=== PATIENT | male | born 1945 | race Caucasian/White ===

== ENCOUNTER 2018-03-10 09:15 | Outpatient (CLI) | payer MEDICARE, BC | END 2018-03-10 09:16 | disposition home or self-care (01) | LOC: EDSEX → BICMAMMO 09:15 | PROVIDERS: ATTEND Family Medicine | DX: Z12.31 Encounter for screening mammogram for malignant neoplasm of breast (principal); R92.1 Mammographic calcification found on diagnostic imaging of breast; Z80.3 Family history of malignant neoplasm of breast | CPT/HCPCS: 77063; 77067 ==

== ENCOUNTER 2019-03-16 13:51 | Outpatient (CLI) | payer MEDICARE, BC ==
--- NOTE | 2019-03-16 15:27 | MMO ---
Bilateral MAMMO Bilat Screen [facility]. CLINICAL HISTORY: Patient is 74 years old and is seen for screening. The patient has no personal history of cancer. The patient has a history of left Excisional Biopsy at age 56 - benign. VIEWS: The views performed were: bilateral craniocaudal with tomosynthesis; bilateral mediolateral oblique with tomosynthesis; and left mediolateral. FILMS COMPARED: The present examination has been compared to prior imaging studies performed at [facility] on 02/28/2016, 03/04/2017, 03/09/2017 and 03/10/2018. This study has been interpreted with the assistance of computer-aided detection. MAMMOGRAM FINDINGS: There are scattered fibroglandular densities. There are no suspicious masses, calcifications or areas of architectural distortion. Benign calcifications are noted bilaterally. There are no suspicious masses, suspicious calcifications, or new areas of architectural distortion. IMPRESSION: THERE IS NO MAMMOGRAPHIC EVIDENCE OF MALIGNANCY. A ROUTINE FOLLOW-UP MAMMOGRAM IN 1 YEAR IS RECOMMENDED. THE RESULTS OF THIS EXAM WERE SENT TO THE PATIENT. ACR BI-RADS Category 2 - Benign finding MAMMOGRAPHY NOTE: 1. A negative mammogram report should not delay a biopsy if a dominant of clinically suspicious mass is present. 2. Approximately 10% to 15% of breast cancers are not detected by mammography. 3. Adenosis and dense breasts may obscure an underlying neoplasm. Reported by: MAGUE JAFFE MD Electonically Signed: [id number]
== END 2019-03-16 13:52 | disposition home or self-care (01) ==
LOC: BICMAMMO 13:51
PROVIDERS: ATTEND Family Medicine
DX: Z12.31 Encounter for screening mammogram for malignant neoplasm of breast (principal); Z91.89 Other specified personal risk factors, not elsewhere classified
CPT/HCPCS: 77063; 77067

== ENCOUNTER 2019-06-09 06:53 | Day surgery (SDC) | payer MEDICARE, BC ==
[2019-06-08 09:40] VITALS: BMI 22.8
[2019-06-09] MEDS ORDERED: PROPOFOL 200 MG/20 ML VIAL ONE (11:33)
--- NOTE | 2019-06-09 11:59 | OP ---
DATE OF PROCEDURE: 06/09/2019 PROCEDURES PERFORMED: 1. Esophagogastroduodenoscopy with balloon dilation (balloon less than 30 mm in size). 2. Colonoscopy with polypectomy. INDICATIONS FOR PROCEDURE: Dysphagia, personal history of colon polyps. DESCRIPTION OF PROCEDURE: After the risks and benefits of the procedures were explained to the patient including risks of bleeding, infection, perforation, reactions to anesthesia, aspiration, and/or pain, informed consent was obtained. The patient was then taken to the endoscopy suite, where she was placed in the left lateral decubitus position followed by deep sedation via propofol and anesthesia support. Once adequate sedation was achieved, the standard gastroscope was introduced into the mouth with intubation of the esophagus, stomach, and the proximal small intestines with the findings listed below. The patient tolerated the procedure well with no immediate perioperative complications. Upon conclusion of the procedure, all equipment was removed from the patient and the bed was rotated 180 degrees in anticipation of the colonoscopy. After a digital rectal examination was performed, the standard colonoscope was introduced into the rectum and advanced to the terminal ileum without difficulty. The quality of the prep was good to excellent. The patient tolerated the procedure well with no immediate perioperative complications. Upon conclusion of the procedure, all equipment was removed from the patient and she was transferred to Day Stay in satisfactory condition. EGD FINDINGS: Esophagus: Normal-appearing mucosa was seen in the proximal and mid esophagus; however, a high-grade stricture was seen in the distal esophagus at the gastroesophageal junction that was traversed with the standard gastroscope, but initially with some difficulty. There was no associated masses or bleeding associated with the stricture at least initially. The gastroesophageal junction was seen at approximately 36 cm past the incisors. Using a CRE TTS balloon, the stricture was then dilated to a maximum diameter of 12 mm in size with a small mucosal rent noted along the inferior aspect of the stricture itself. Further dilation was then not performed. Stomach: Normal-appearing mucosa was seen in the gastric cardia, fundus, body, greater curvature, antrum, and incisura. There was no evidence of erosions, ulcerations, mass lesions, or active/recent bleeding. Duodenum: Normal-appearing mucosa was seen in the duodenal bulb and second portion of the duodenum. There was no evidence of erosions, ulcerations, mass lesions, or active/recent bleeding. IMPRESSION: High-grade esophageal stricture dilated to 12 mm with an esophageal balloon (most likely source of dysphagia). COLONOSCOPY FINDINGS: Digital rectal exam: Normal findings were seen on external examination. Colon findings: Normal-appearing mucosa was seen within the terminal ileum as well as at the ileocecal valve and appendiceal orifice. A 2 to 3 mm polyp was seen in the cecum and completely removed with snare cautery polypectomy. It was retrieved and placed in a specimen jar for evaluation. Normal-appearing mucosa was then seen in the ascending colon, transverse colon, descending colon, and sigmoid colon. Scattered small diverticula were seen in the sigmoid colon without any associated mucosal inflammation. Three polyps, measuring 2 to 3 mm in size, were also seen in the rectum and completely removed with either cold snare polypectomy or biopsy forceps. They were all retrieved and placed in a specimen jar for further evaluation. No abnormalities were seen on rectal retroflexion. IMPRESSION: 1. 2 to 3 mm cecal polyp status post cold snare polypectomy. 2. Three 2 to 3 mm rectal polyps status post cold snare polypectomy and biopsy forceps. 3. Mild sigmoid diverticulosis. RECOMMENDATIONS: 1. We will follow up on the biopsy results with further colonoscopy interval to be determined by pathology report. 2. Would place the patient on a liquid diet for the next 24 hours, then advance as tolerated given the high-grade stricture. 3. Would start the patient on omeprazole 40 mg daily in light of probable acid reflux causing a stricture. 4. Would repeat the upper endoscopy in 4 weeks for repeat evaluation of the stricture and probable repeat dilation. 5. Would recommend a higher fiber diet given the presence of diverticulosis. 6. Follow up in the GI clinic in the interim as needed. Job ID: [id number]
== END 2019-06-09 11:30 | disposition home or self-care (01) ==
LOC: EDSEX → SDC 06:53
PROVIDERS: ATTEND Internal Medicine
PROC: 0DBH8ZZ Excision of Cecum, Via Natural or Artificial Opening Endoscopic (ICD-10-PCS; principal; 2019-06-09)
PROC: 0DBP8ZZ Excision of Rectum, Via Natural or Artificial Opening Endoscopic (ICD-10-PCS; 2019-06-09)
PROC: 0D758ZZ Dilation of Esophagus, Via Natural or Artificial Opening Endoscopic (ICD-10-PCS; 2019-06-09)
DX: Z12.11 Encounter for screening for malignant neoplasm of colon (principal); K62.1 Rectal polyp; K63.5 Polyp of colon; K57.30 Diverticulosis of large intestine without perforation or abscess without bleeding; K22.2 Esophageal obstruction; F41.9 Anxiety disorder, unspecified; I10 Essential (primary) hypertension; E78.00 Pure hypercholesterolemia, unspecified; Z86.010 Personal history of colon polyps; Z79.82 Long term (current) use of aspirin; Z79.899 Other long term (current) drug therapy
CPT/HCPCS: 88305; J2704

== ENCOUNTER 2020-03-16 09:46 | Outpatient (CLI) | payer MEDICARE, BC ==
--- NOTE | 2020-03-16 11:21 | MMO ---
Bilateral MAMMO Bilat Screen [facility]. CLINICAL HISTORY: Patient is 75 years old and is seen for screening. The patient has the following family history of breast cancer: daughter, at age 50. The patient has no personal history of cancer. The patient has a history of left Excisional Biopsy at age 56 - benign. VIEWS: The views performed were: bilateral craniocaudal with tomosynthesis and bilateral mediolateral oblique with tomosynthesis. FILMS COMPARED: The present examination has been compared to prior imaging studies performed at [facility] on 03/04/2017, 03/09/2017, 03/10/2018 and 03/16/2019. This study has been interpreted with the assistance of computer-aided detection. MAMMOGRAM FINDINGS: There are scattered fibroglandular densities. There are stable benign appearing calcifications seen in both breasts. There are no suspicious masses, suspicious calcifications, or new areas of architectural distortion. IMPRESSION: THERE IS NO MAMMOGRAPHIC EVIDENCE OF MALIGNANCY. A ROUTINE FOLLOW-UP MAMMOGRAM IN 1 YEAR IS RECOMMENDED. THE RESULTS OF THIS EXAM WERE SENT TO THE PATIENT. ACR BI-RADS Category 2 - Benign finding MAMMOGRAPHY NOTE: 1. A negative mammogram report should not delay a biopsy if a dominant of clinically suspicious mass is present. 2. Approximately 10% to 15% of breast cancers are not detected by mammography. 3. Adenosis and dense breasts may obscure an underlying neoplasm. Reported by: RENAE AGUIRRE MD Electonically Signed: [id number]
== END 2020-03-16 09:47 | disposition home or self-care (01) ==
LOC: BICMAMMO 09:46
PROVIDERS: ATTEND Family Medicine
DX: Z12.31 Encounter for screening mammogram for malignant neoplasm of breast (principal); Z80.3 Family history of malignant neoplasm of breast; Z91.89 Other specified personal risk factors, not elsewhere classified
CPT/HCPCS: 77063; 77067

== ENCOUNTER 2021-02-14 17:54 | Observation (INO) | payer MEDICARE, BC ==
[~2021-02-14 17:54] MED LIST: Iopamidol-370 76% 500 ML 1 ML ONE
[2021-02-14] MEDS ORDERED: Metoclopramide HCl 10 MG/2 ML VIAL ONE (18:50)
[2021-02-14] MEDS ORDERED: Acetaminophen 500 MG TAB ONE (18:50)
[2021-02-14] MEDS ORDERED: diphenhydrAMINE 50 MG/ML VIAL ONE (18:50)
[2021-02-14 18:55] LABS: #Basophils 0.1 thou/uL (0.0-0.2); #Eosinphils 0.1 thou/uL (0.0-0.7); #Monocytes 0.8 thou/uL (0.11-0.59); #Neutrophils 4.3 thou/uL (1.40-6.50); %Basophils 0.7 % (0.0-1.0); %Eosinophils 1.1 % (0.0-10.0); %Lymphocytes 27.9 % (21.0-51.0); %Monocytes 11.5 % (0.0-10.0); %Neutrophils 58.8 % (42.0-75.0); Hemoglobin 13.5 g/dL (12.0-16.0); Mean Corpuscular HGB CONC 34.2 g/dL (32.0-36.0); Mean Corpuscular Hemoglobin 32.2 pg (27.0-31.0); Mean Corpuscular Volume 94.1 fL (78.0-98.0); Mean Platelet Volume 7.2 fL (7.4-10.4); Platelet Count 295 thou/uL (130-400); RBC Distribution Width 10.9 % (11.5-14.5); White Blood Cell (WBC) Count 7.3 thou/uL (4.8-10.8)
[2021-02-14 19:12] LABS: Prothrombin Time 13.1 sec (12.0-14.7)
[2021-02-14 19:13] LABS: PTT 27.5 sec (22.9-36.1)
[2021-02-14 19:16] LABS: ALT (SGPT) 20 U/L (8-55); AST (SGOT) 15 U/L (5-34); Albumin 4.3 g/dL (3.4-4.8); Alkaline Phosphatase 87 U/L (40-110); Anion Gap 14 mmol/L (10-20); BUN (Urea Nitrogen) 13 mg/dL (9.8-20.1); Bilirubin, Total 0.5 mg/dL (0.2-1.2); Calc. Creatinine Clearance 0 mL/min (70-130); Calcium 9.6 mg/dL (7.8-10.44); Carbon Dioxide 22 mmol/L (23-31); Chloride 106 mmol/L (98-107); Globulin 2.6 g/dL (2.4-3.5); Glucose 105 mg/dL (83-110); Potassium 4.2 mmol/L (3.5-5.1); Protein, Total 6.9 g/dL (5.8-8.1); Sodium 138 mmol/L (136-145)
[2021-02-14 19:35] LABS: Bacteria/HPF None Seen HPF (None Seen); Bilirubin Negative (Negative); Blood, Urine Negative (Negative); Clarity Clear (Clear); Glucose, Urine (Dipstick) Normal (Negative); Ketone, Urine Negative (Negative); Leukocyte 25 Leu/uL (Negative); Nitrite Negative (Negative); Protein, Urine (Dipstick) Negative (Neg-Trace); RBC/HPF 0-3 HPF (0-3); Specific Gravity, Urine 1.011 (1.002-1.036); Squamous Epithelial 0-3 HPF (0-3); Urobilinogen Normal mg/dL (Less than 2); WBC/HPF 0-3 HPF (0-3)
[2021-02-14 19:37] LABS: CKMB 1.5 ng/mL (0-6.6)
[2021-02-14] MEDS ORDERED: Aspirin Chewable 81 MG TAB ONE (21:04)
[2021-02-14] MEDS ORDERED: Aspirin 81 mg Enteric Coated Tablet ONE (21:04)
[2021-02-14] MEDS ORDERED: Ketorolac Tromethamine 30 MG/ML VIAL ONE (21:04)
[2021-02-14 22:14] LABS: Troponin I 0.037 ng/mL (< 0.028)
[2021-02-14] MEDS ORDERED: Zolpidem Tartrate 5 MG TAB PO PRN (22:44)
[2021-02-14] MEDS ORDERED: Acetaminophen 325 MG TAB PO PRN (22:51)
[2021-02-14] MEDS ORDERED: Ondansetron PF 4 MG/2 ML Vial IVP PRN (22:51)
[2021-02-14] MEDS ORDERED: Nitroglycerin 0.4 MG TAB (25 Tab Bottle) SL PRN (22:55)
[2021-02-14] MEDS ORDERED: Zolpidem Tartrate 5 MG TAB ONE (23:51)
[2021-02-15 01:16] LABS: Troponin I 0.039 ng/mL (< 0.028)
[2021-02-15 01:16] LABS: SARS-CoV-2 NAA Rapid Test Not Detected (NotDetected)
[2021-02-15 04:32] LABS: #Lymphocytes 2.1 thou/uL (1.20-3.40); #Monocytes 0.7 thou/uL (0.11-0.59); #Neutrophils 2.8 thou/uL (1.40-6.50); %Basophils 0.1 % (0.0-1.0); %Eosinophils 0.7 % (0.0-10.0); %Lymphocytes 37.8 % (21.0-51.0); %Monocytes 11.6 % (0.0-10.0); %Neutrophils 49.8 % (42.0-75.0); Hemoglobin 12.6 g/dL (12.0-16.0); Mean Corpuscular HGB CONC 34.1 g/dL (32.0-36.0); Mean Corpuscular Hemoglobin 32.2 pg (27.0-31.0); Mean Corpuscular Volume 94.3 fL (78.0-98.0); Mean Platelet Volume 7.2 fL (7.4-10.4); Platelet Count 266 thou/uL (130-400); RBC Distribution Width 10.8 % (11.5-14.5); Red Blood Cell (RBC) Count 3.92 mill/uL (4.20-5.40); White Blood Cell (WBC) Count 5.6 thou/uL (4.8-10.8)
[2021-02-15 04:48] LABS: Anion Gap 12 mmol/L (10-20); BUN (Urea Nitrogen) 12 mg/dL (9.8-20.1); Calc. Creatinine Clearance 0 mL/min (70-130); Carbon Dioxide 22 mmol/L (23-31); Cardiac Risk 3.5 (Less than 4.5); Chloride 107 mmol/L (98-107); Cholesterol 155 mg/dl (< 200 Desired); Glucose 92 mg/dL (83-110); HDL Cholesterol 44 mg/dL (>60 Neg Risk); LDL Cholesterol, Calculated 99 mg/dL; Potassium 4.1 mmol/L (3.5-5.1); Sodium 137 mmol/L (136-145); Triglycerides 61 mg/dL (Less than 150)
[2021-02-15 08:31] VITALS: BP 137/71; TEMP 97.6
== END 2021-02-15 10:45 | disposition left against medical advice (07) ==
LOC: ERS 17:54 → ERHOLD 21:31
PROVIDERS: ADMIT Student in an Organized Health Care Education/Training Program; ATTEND Physician Assistant
DX: G45.9 Transient cerebral ischemic attack, unspecified (principal); R77.8 Other specified abnormalities of plasma proteins; I10 Essential (primary) hypertension; I48.91 Unspecified atrial fibrillation; Z20.822 Contact with and (suspected) exposure to COVID-19; Z79.82 Long term (current) use of aspirin; Z79.899 Other long term (current) drug therapy; Z95.0 Presence of cardiac pacemaker; Z53.29 Procedure and treatment not carried out because of patient's decision for other reasons
CPT/HCPCS: 70496; 70498; 80048; 80053; 80061; 82553; 84484 ×3; 85025 ×2; 85610; 85730; 93005; U0002; 36415; 81003; 81015; 96374; 96375; G0378; J1200; J1885; J2765; Q9967

== ENCOUNTER 2021-03-19 09:36 | Outpatient (CLI) | payer MEDICARE, BC | END 2021-03-19 09:37 | disposition home or self-care (01) | LOC: BICMAMMO 09:36 | PROVIDERS: ATTEND Family Medicine | DX: Z12.31 Encounter for screening mammogram for malignant neoplasm of breast (principal); Z80.3 Family history of malignant neoplasm of breast; Z91.89 Other specified personal risk factors, not elsewhere classified | CPT/HCPCS: 77063; 77067 ==

== ENCOUNTER 2022-03-21 08:34 | Outpatient (CLI) | payer MEDICARE, BC | END 2022-03-21 08:35 | disposition home or self-care (01) | LOC: BICMAMMO 08:34 | PROVIDERS: ATTEND Family Medicine | DX: Z12.31 Encounter for screening mammogram for malignant neoplasm of breast (principal); Z80.3 Family history of malignant neoplasm of breast; Z91.89 Other specified personal risk factors, not elsewhere classified | CPT/HCPCS: 77063; 77067 ==

== ENCOUNTER 2023-04-08 13:01 | Outpatient (CLI) | payer MEDICARE, BC | END 2023-04-08 13:02 | disposition home or self-care (01) | LOC: BICMAMMO 13:01 | PROVIDERS: ATTEND Family Medicine | DX: Z12.31 Encounter for screening mammogram for malignant neoplasm of breast (principal); Z80.3 Family history of malignant neoplasm of breast; Z91.89 Other specified personal risk factors, not elsewhere classified | CPT/HCPCS: 77063; 77067 ==

== ENCOUNTER 2023-06-10 16:27 | Inpatient (IN) | payer MEDICARE, BC ==
[~2023-06-10 16:27] MED LIST changes: -Iopamidol-370 76% 500 ML 1 ML ONE; +Iopamidol-370 76% 500 ML MDV (1 ML CHARGE) ONE
[2023-06-10 16:53] LABS: #Monocytes 0.4 thou/uL (0.11-0.59); #Neutrophils 6.9 thou/uL (1.40-6.50); %Basophils 0.2 % (0.0-1.0); %Eosinophils 0.2 % (0.0-10.0); %Monocytes 4.4 % (0.0-10.0); %Neutrophils 73.8 % (42.0-75.0); Hematocrit 40.5 % (36.0-47.0); Mean Corpuscular HGB CONC 34.6 g/dL (32.0-36.0); Mean Corpuscular Hemoglobin 32.3 pg (27.0-31.0); Mean Corpuscular Volume 93.3 fl (78.0-98.0); Mean Platelet Volume 9.4 fL (7.4-10.4); Platelet Count 324 10x3/uL (130-400); RBC Distribution Width 11.5 % (11.5-14.5); Red Blood Cell (RBC) Count 4.34 mill/uL (4.20-5.40); White Blood Cell (WBC) Count 9.3 10x3/uL (4.8-10.8)
[2023-06-10 17:02] LABS: PTT 24.6 sec (22.9-36.1); Prothrombin Time 13.4 sec (12.0-14.7)
[2023-06-10] MEDS ORDERED: Aspirin Chewable 81 MG TAB ONE (17:12)
[2023-06-10 17:22] LABS: ALT (SGPT) 19 U/L (8-55); AST (SGOT) 19 U/L (5-34); Albumin 4.3 g/dL (3.4-4.8); Alkaline Phosphatase 91 U/L (40-110); Anion Gap 13 mmol/L (10-20); BUN (Urea Nitrogen) 20 mg/dL (9.8-20.1); Bilirubin, Total 0.5 mg/dL (0.2-1.2); CK (CPK) 66 U/L (29-168); Calc. Creatinine Clearance 0 mL/min (70-130); Carbon Dioxide 23 mmol/L (23-31); Chloride 103 mmol/L (98-107); Estimated GFR 67; Glucose 137 mg/dL (83-110); Protein, Total 7.3 g/dL (5.8-8.1); Sodium 135 mmol/L (136-145)
[2023-06-10 17:23] LABS: Troponin I 0.017 ng/mL (< 0.028)
[2023-06-10] MEDS ORDERED: Labetalol HCl 100 MG/20 ML VIAL SLOW IVP PRN (17:33)
[2023-06-10] MEDS ORDERED: hydrALAZINE 20 MG/ML VIAL SLOW IVP PRN (17:33)
[2023-06-10] MEDS ORDERED: Acetaminophen 325 MG TAB PO PRN (17:33)
[2023-06-10] MEDS ORDERED: Ondansetron PF 4 MG/2 ML Vial IVP PRN (17:33)
[2023-06-10] MEDS ORDERED: Ondansetron ODT 4 MG TAB PO PRN (17:33)
[2023-06-10] MEDS ORDERED: Acetaminophen 650 MG Suppository PR PRN (17:33)
[2023-06-10 17:50] LABS: Magnesium 2.2 mg/dL (1.6-2.6)
[2023-06-10] MEDS ORDERED: Dextrose 5% in Water 1,000 ML IV PRN (18:23)
[2023-06-10] MEDS ORDERED: Dextrose 50% Abboject 50 ML SYRINGE SLOW IVP PRN (18:23)
[2023-06-10] MEDS ORDERED: HumaLOG 300 UNITS/3 ML VIAL SC PRN ×2 (18:23)
[2023-06-10] MEDS ORDERED: Glucagon 1 MG/ML KIT IM PRN (18:23)
[2023-06-10] MEDS: Atorvastatin Calcium 40 MG TAB PO SCH (20:44)
[2023-06-10] MEDS: Famotidine 20 MG TAB PO SCH (20:44)
[2023-06-10 22:15] VITALS: BMI 22.5
[2023-06-11 05:25] LABS: #Monocytes 1.1 thou/uL (0.11-0.59); #Neutrophils 7.7 thou/uL (1.40-6.50); %Basophils 0.1 % (0.0-1.0); %Lymphocytes 18.5 % (21.0-51.0); %Monocytes 9.9 % (0.0-10.0); %Neutrophils 71.1 % (42.0-75.0); Hemoglobin 13.8 g/dL (12.0-16.0); Mean Corpuscular HGB CONC 34.5 g/dL (32.0-36.0); Mean Corpuscular Hemoglobin 31.6 pg (27.0-31.0); Mean Corpuscular Volume 91.5 fl (78.0-98.0); Mean Platelet Volume 9.7 fL (7.4-10.4); Platelet Count 336 10x3/uL (130-400); RBC Distribution Width 11.8 % (11.5-14.5); Red Blood Cell (RBC) Count 4.37 mill/uL (4.20-5.40); White Blood Cell (WBC) Count 10.8 10x3/uL (4.8-10.8)
[2023-06-11 05:32] LABS: Hemoglobin A1c 5.2 % (4.0-6.0)
[2023-06-11 05:52] LABS: Anion Gap 14 mmol/L (10-20); BUN (Urea Nitrogen) 16 mg/dL (9.8-20.1); Calc. Creatinine Clearance 59 mL/min (70-130); Calcium 9.3 mg/dL (7.8-10.44); Carbon Dioxide 21 mmol/L (23-31); Chloride 104 mmol/L (98-107); Cholesterol 186 mg/dl (< 200 Desired); Estimated GFR 70; Glucose 120 mg/dL (83-110); HDL Cholesterol Less than 8 mg/dL (>60 Neg Risk); Potassium 3.2 mmol/L (3.5-5.1); Sodium 136 mmol/L (136-145); Triglycerides 52 mg/dL (Less than 150)
[2023-06-11 06:03] LABS: Cardiac Risk 3.4 (Less than 4.5); LDL Cholesterol, Calculated 121 mg/dL
[2023-06-11] MEDS: Aspirin 81 mg Enteric Coated Tablet PO SCH (11:00)
[2023-06-11 11:07] LABS: Bacteria/HPF None Seen HPF (None Seen); Bilirubin Negative (Negative); Blood, Urine Negative (Negative); CAUTI Indications for Culture Alt mental st,lethar; Clarity Clear (Clear); Glucose, Urine (Dipstick) Normal (Negative); Ketone, Urine 20 mg/dL (Negative); Leukocyte Negative Leu/uL (Negative); Nitrite Negative (Negative); Protein, Urine (Dipstick) 20 mg/dL (Neg-Trace); Specific Gravity, Urine 1.029 (1.002-1.036); Urobilinogen Normal mg/dL (Less than 2); WBC/HPF 0-3 HPF (0-3)
[2023-06-11 11:08] LABS: Urine Culture Reflex No No
[2023-06-11] MEDS: Zolpidem Tartrate 5 MG TAB PO PRN (21:03)
[2023-06-12] MEDS: Clopidogrel Bisulfate 300 MG TAB PO SCH (12:08)
[2023-06-13 03:12] LABS: Magnesium 2.2 mg/dL (1.6-2.6)
[2023-06-13] MEDS: Clopidogrel Bisulfate 75 MG TAB PO SCH (10:00)
[2023-06-13 11:45] VITALS: BP 126/84; TEMP 97.1
== END 2023-06-13 12:42 | disposition home or self-care (01) | DRG 66 ==
LOC: ERS 16:27 → ERHOLD 17:59 → 2SE 19:53
PROVIDERS: ADMIT Family Medicine; ATTEND Emergency Medicine
PROC: 4A00X4Z Measurement of Central Nervous Electrical Activity, External Approach (ICD-10-PCS; principal; 2023-06-11)
DX: I63.9 Cerebral infarction, unspecified (principal); I10 Essential (primary) hypertension; I48.91 Unspecified atrial fibrillation; Z79.82 Long term (current) use of aspirin; Z79.899 Other long term (current) drug therapy; Z95.810 Presence of automatic (implantable) cardiac defibrillator; Z90.710 Acquired absence of both cervix and uterus; E78.2 Mixed hyperlipidemia
CPT/HCPCS: 36415; 36416; 70450; 70496; 70498; 71045; 80048; 80053; 80061; 81001; 82550; 83036; 83735; 84443; 84484; 85025; 93005; 93306; 95711; 95819; Q9967

== ENCOUNTER 2024-04-25 08:12 | Outpatient (CLI) | payer MEDICARE, BC | END 2024-04-25 08:13 | disposition home or self-care (01) | LOC: BICMAMMO 08:12 | PROVIDERS: ATTEND Family Medicine | DX: R92.322 Mammographic fibroglandular density, left breast (principal); N64.89 Other specified disorders of breast | CPT/HCPCS: 76642; 77065; G0279 ==